=== PATIENT | female | born 1990 | race Caucasian/White ===

== ENCOUNTER 2019-09-20 18:04 | Emergency (ER) | payer OTHER ==
[~2019-09-20] VITALS: Ht 157.5 cm; Wt 53.5 kg
[~2019-09-20 18:04] MED LIST: ZOFRAN ODT4 MG PO
[2019-09-20 18:40] VITALS: BP 99/55
[2019-09-20] MEDS ORDERED: IBUPROFEN 600600 M1 PO (19:52)
[2019-09-20] MEDS ORDERED: CLARITIN-D 121 EAC1 PO (19:53)
[2019-09-20] MEDS ORDERED: TESSALON PERLE100 MG PO (19:53)
== END 2019-09-20 20:10 | disposition home or self-care (01) ==
LOC: ER 18:04
DX: J11.1 Influenza due to unidentified influenza virus with other respiratory manifestations (principal); F17.210 Nicotine dependence, cigarettes, uncomplicated; Z90.49 Acquired absence of other specified parts of digestive tract; Z88.0 Allergy status to penicillin